=== PATIENT | male | born 1970 | race Caucasian/White ===

== ENCOUNTER 2023-11-24 10:55 | Day surgery (SDC) | payer BC, OTHER ==
[~2023-11-24 10:55] MED LIST: Metoclopramide 10 MG/2 ML SDV IV PRN
[2023-11-24] MEDS: Sodium Chloride 0.9% 1,000 ML IV SCH (11:37)
[2023-11-24] MEDS ORDERED: Propofol 1,000 MG/100 ML SDV ONE (13:30)
[2023-11-24 14:35] VITALS: BP 133/82; PULSE 60
== END 2023-11-24 14:30 | disposition home or self-care (01) ==
LOC: LB.SDS 10:55
PROVIDERS: ATTEND Surgery
DX: Z12.11 Encounter for screening for malignant neoplasm of colon (principal); K57.30 Diverticulosis of large intestine without perforation or abscess without bleeding; E78.5 Hyperlipidemia, unspecified
CPT/HCPCS: J2704; J7030